=== PATIENT | female | born 1975 | race Caucasian/White ===

== ENCOUNTER 2017-12-14 01:45 | Emergency (ER) | payer OTHER ==
[~2017-12-14] VITALS: Ht 160 cm; Wt 104.3 kg
[2017-12-14 06:11] LABS: Basophils # (auto) 0.1 uL; Eosinophils # (auto) 0.1 uL; Mean Corpuscular Hgb Conc. 30.4 g/dL (32.0-36.0); Monocytes # (auto) 0.3 uL
[2017-12-14 06:13] LABS: Basophils % (auto) 0.8 % (0.0-2.0); Eosinophils % (auto) 0.5 % (0.0-7.0); Hematocrit 30.5 % (36.0-46.0); Hemoglobin 9.3 g/dL (12.2-16.2); Lymphocytes % (auto) 21.3 % (10.0-50.0); Mean Corpuscular Hemoglobin 21.8 pg (28.0-32.0); Mean Corpuscular Volume 71.8 fL (80.0-100.0); Monocytes % (auto) 2.8 % (0.0-12.0); Neutrophils % (auto) 74.6 % (37.0-80.0); Nucleated Red Blood Cells % 0.2 %; Platelet Count (auto) 324 10^3/uL (140-450); Red Blood Cells 4.24 10^6/uL (4.0-5.20); Red Cell Distribution Width 16.8 % (11.8-14.3); White Blood Cell 9.4 10^3/uL (4.4-10.8)
[2017-12-14 06:38] LABS: Alanine Aminotransferase 21 U/L (13-56); Albumin 3.5 g/dL (3.4-5.0); Alkaline Phosphatase 99 U/L (45-117); Anion Gap 8 (5-15); Aspartate Aminotransferase 18 U/L (15-37); BUN/Creatinine Ratio 9.5; Bilirubin, Total 0.4 mg/dL (0.2-1.0); Blood Urea Nitrogen 6 mg/dL (7-18); Calcium 8.9 mg/dL (8.5-10.1); Carbon Dioxide 23 mmol/L (21-32); Chloride 109 mmol/L (98-107); GFR African American 133 mL/min; GFR Non-African American 110 mL/min; Glucose 120 mg/dL (74-106); Potassium 3.5 mmol/L (3.5-5.1); Sodium 140 mmol/L (136-145); Total Protein 7.6 g/dL (6.4-8.2)
[2017-12-14 06:43] LABS: Urine Bacteria FEW /hpf (None Seen); Urine Blood Negative /uL (Negative); Urine Mucus FEW (None Seen); Urine Specific Gravity 1.017 (1.001-1.035); Urine WBC 11 /hpf (0 - 5)
[2017-12-14 06:47] LABS: Urine Pregnacy Test Negative (Negative)
[2017-12-14 06:59] LABS: Amphetamine Screen, Urine POSITIVE (NEGATIVE); Barbiturate Scree,Urine NEGATIVE (NEGATIVE); Benzodiazephine Screen, Urine NEGATIVE (NEGATIVE); Cannabinoid Screen, Urine POSITIVE (NEGATIVE); Cocaine Screen, Urine NEGATIVE (NEGATIVE); Opiate Scree,Urine NEGATIVE (NEGATIVE); Phencyclidine Screen, Urine NEGATIVE (NEGATIVE)
[2017-12-14] MEDS ORDERED: SODIUM CHLORIDE 0.9% 1,000 ML IV ONE (07:26)
[2017-12-14 08:41] VITALS: BP 131/85
== END 2017-12-14 08:42 | disposition home or self-care (01) ==
LOC: EDBD 01:45 → ER 01:50
DX: F19.129 Other psychoactive substance abuse with intoxication, unspecified (principal); F15.10 Other stimulant abuse, uncomplicated; F12.10 Cannabis abuse, uncomplicated; D50.0 Iron deficiency anemia secondary to blood loss (chronic); F10.129 Alcohol abuse with intoxication, unspecified; E11.9 Type 2 diabetes mellitus without complications; F17.210 Nicotine dependence, cigarettes, uncomplicated
CPT/HCPCS: 36415; 70450; 80053; 80307; 80320; 81001; 81025; 82962; 83735; 84484; 85025; 93005; 96360

== ENCOUNTER 2018-01-24 01:58 | Emergency (ER) | payer MEDICAID, OTHER | END 2018-01-24 02:00 | disposition left against medical advice (07) | LOC: ER 01:58 → EDBD 01:58 → ER 02:00 | DX: F10.10 Alcohol abuse, uncomplicated (principal); Z53.21 Procedure and treatment not carried out due to patient leaving prior to being seen by health care provider ==

== ENCOUNTER 2019-07-30 05:31 | Inpatient (IN) | payer OTHER, MEDICAID | END 2019-07-31 16:00 | disposition left against medical advice (07) | LOC: ER 05:31 → OVERFLOW 05:32 → EAST 11:08 | DX: N12 Tubulo-interstitial nephritis, not specified as acute or chronic (principal); E44.1 Mild protein-calorie malnutrition; N20.0 Calculus of kidney; D50.9 Iron deficiency anemia, unspecified; E11.9 Type 2 diabetes mellitus without complications; I10 Essential (primary) hypertension; E66.9 Obesity, unspecified; N30.90 Cystitis, unspecified without hematuria; E87.6 Hypokalemia; F17.210 Nicotine dependence, cigarettes, uncomplicated ==

== ENCOUNTER 2019-09-07 15:44 | Emergency (ER) | payer OTHER ==
[~2019-09-07] VITALS: Ht 167.6 cm; Wt 72.6 kg
[2019-09-07 16:05] VITALS: BP 118/71
== END 2019-09-07 19:04 | disposition left against medical advice (07) ==
LOC: EDBD 15:44 → ER 15:44
DX: M54.2 Cervicalgia (principal); R42 Dizziness and giddiness; Z53.21 Procedure and treatment not carried out due to patient leaving prior to being seen by health care provider

== ENCOUNTER 2021-04-17 08:04 | Inpatient (IN) | payer OTHER, MEDICAID ==
[~2021-04-17] VITALS: Ht 162.6 cm; Wt 102.8 kg
[2021-04-17] MEDS ORDERED: SODIUM CHLORIDE 0.9% 1,000 ML IVB ONE (08:30)
[2021-04-17] MEDS ORDERED: PROCHLORPERAZINE EDISYLATE 5 MG/ML 2ML VIAL IV ONE (08:30)
[2021-04-17] MEDS ORDERED: MORPHINE SULFATE 4 MG/ML SYR/VIAL IV ONE (08:30)
[2021-04-17] MEDS ORDERED: SODIUM CHLORIDE 0.9% 1,000 ML IV ONE (08:30)
[2021-04-17 08:36] LABS: Urine Bacteria MANY /hpf (None Seen); Urine Blood TRACE /uL (Negative); Urine Mucus FEW (None Seen); Urine Specific Gravity 1.015 (1.001-1.035); Urine WBC 311 /hpf (0 - 5); Urine WBC Clumps PRESENT /hpf (None Seen)
[2021-04-17 08:48] LABS: Alcohol, Urine < 3.0 mg/dL (0-10); Amphetamine Screen, Urine POSITIVE (NEGATIVE); Barbiturate Scree,Urine NEGATIVE (NEGATIVE); Benzodiazephine Screen, Urine NEGATIVE (NEGATIVE); Cocaine Screen, Urine NEGATIVE (NEGATIVE)
[2021-04-17 08:49] LABS: Hematocrit 23.7 % (36.0-46.0); Mean Corpuscular Hgb Conc. 29.1 g/dL (32.0-36.0); Mean Corpuscular Volume 58.6 fL (80.0-100.0); Platelet Count (auto) 452 10^3/uL (140-450); Red Blood Cells 4.05 10^6/uL (4.0-5.20); Red Cell Distribution Width 19.4 % (11.8-14.3); White Blood Cell 24.5 10^3/uL (4.4-10.8)
[2021-04-17 08:55] LABS: Hemoglobin 6.9 g/dL (12.2-16.2)
[2021-04-17 08:56] LABS: Cannabinoid Screen, Urine POSITIVE (NEGATIVE); Opiate Scree,Urine NEGATIVE (NEGATIVE); Phencyclidine Screen, Urine NEGATIVE (NEGATIVE)
[2021-04-17 08:57] LABS: Basophils % (manual) 0 (0.0-2.0); Blast Cells 0; Eosinophils % (manual) 0 (0-7); Metamyelocytes % 0; Myelocytes % 0; Promyelocytes % 0; Reactive Lymphocytes 0
[2021-04-17 08:59] LABS: Albumin 3.2 g/dL (3.4-5.0); Anion Gap 8 (5-15); Blood Urea Nitrogen 4 mg/dL (7-18); Calcium 8.8 mg/dL (8.5-10.1); Carbon Dioxide 21 mmol/L (21-32); Chloride 103 mmol/L (98-107); Glucose 124 mg/dL (74-106); Lipase 55 U/L (73-393); Potassium 3.3 mmol/L (3.5-5.1); Sodium 132 mmol/L (136-145)
[2021-04-17 09:05] LABS: Alanine Aminotransferase 30 U/L (13-56); Alkaline Phosphatase 129 U/L (45-117); Aspartate Aminotransferase 35 U/L (15-37); BUN/Creatinine Ratio 6.3; Bilirubin, Total 0.9 mg/dL (0.2-1.0); GFR African American 131 mL/min; GFR Non-African American 109 mL/min; Total Protein 7.4 g/dL (6.4-8.2)
[2021-04-17 11:48] LABS: Band Neutrophils % (manual) 9; Lymphocytes % (manual) 8 (10.0-50.0); Monocytes % (manual) 4 (0-12)
[2021-04-17] MEDS ORDERED: cefTRIAXone 1GM/50ML D5W 50 ML IV ONE (13:00)
[2021-04-17] MEDS ORDERED: KETOROLAC TROMETH 30 MG/ML 1ML VIAL IV ONE (13:00)
[2021-04-17] MEDS ORDERED: ACETAMINOPHEN 500 MG TAB PO ONE (13:13)
[2021-04-17] MEDS ORDERED: ACETAMINOPHEN 325 MG TAB PO ONE (13:15)
[2021-04-17] MEDS ORDERED: LORazepam 2MG/ML-1ML VIAL IV PRN (14:45)
[2021-04-17] MEDS ORDERED: NITROGLYCERIN 0.4 MG SL TAB SL PRN (14:45)
[2021-04-17] MEDS ORDERED: ONDANSETRON HCL 4 MG/2 ML VIAL IV PRN (14:45)
[2021-04-17] MEDS ORDERED: ACETAMINOPHEN 500 MG TAB PO PRN (14:45)
[2021-04-17] MEDS ORDERED: MORPHINE SULF INJ 2 MG/ML SYRINGE 1ML IV PRN (14:45)
[2021-04-17] MEDS ORDERED: POTASSIUM EFFERVESENT TAB 25 MEQ PO ONE (15:00)
[2021-04-17] MEDS: SODIUM CHLORIDE 0.9% 1,000 ML IV SCH ×2 (15:13→21:25)
[2021-04-17 22:00] VITALS: BP 94/53
[2021-04-18] VITALS (8 sets, daily range): BP systolic 94–123; BP diastolic 54–59
[2021-04-18] MEDS: MORPHINE SULF INJ 2 MG/ML SYRINGE 1ML IV PRN ×4 (00:15→23:42)
[2021-04-18] MEDS: HYDROcodone-ACET 5/325MG TAB PO PRN ×3 (03:30→20:23)
[2021-04-18] MEDS: SODIUM CHLORIDE 0.9% 1,000 ML IV SCH ×3 (04:05→12:02)
[2021-04-18 06:20] LABS: Hemoglobin 7.7 g/dL (12.2-16.2)
[2021-04-18 06:22] LABS: Hematocrit 25.9 % (36.0-46.0); Mean Corpuscular Hemoglobin 18.2 pg (28.0-32.0); Mean Corpuscular Hgb Conc. 29.8 g/dL (32.0-36.0); Mean Corpuscular Volume 61.3 fL (80.0-100.0); Platelet Count (auto) 395 10^3/uL (140-450); Red Blood Cells 4.23 10^6/uL (4.0-5.20); White Blood Cell 29.7 10^3/uL (4.4-10.8)
[2021-04-18 06:34] LABS: Red Cell Distribution Width 20.8 % (11.8-14.3)
[2021-04-18 06:36] LABS: Basophils % (manual) 0 (0.0-2.0); Blast Cells 0; Eosinophils % (manual) 0 (0-7); Metamyelocytes % 0; Myelocytes % 0; Promyelocytes % 0; Reactive Lymphocytes 0
[2021-04-18 06:37] LABS: Calcium 7.9 mg/dL (8.5-10.1); Potassium 3.7 mmol/L (3.5-5.1)
[2021-04-18 06:40] LABS: BUN/Creatinine Ratio 15.6
[2021-04-18 07:45] LABS: Band Neutrophils % (manual) 20; Lymphocytes % (manual) 6 (10.0-50.0); Monocytes % (manual) 3 (0-12)
[2021-04-18] MEDS ORDERED: cefTRIAXone 1GM/50ML D5W 50 ML IV SCH (09:00)
[2021-04-18] MEDS ORDERED: PANTOPRAZOLE 40 MG TAB PO SCH (10:00)
[2021-04-18] MEDS ORDERED: FOLIC ACID 1 MG, MULTIPLE VITAMIN 10 ML, MAGNESIUM SULF SDV 50% 8 MEQ, THIAMINE INJ 100... INJ SCH ×5 (12:00)
[2021-04-18] MEDS ORDERED: GOLYTELY 4L KIT PO ONE (16:30)
[2021-04-19] MEDS: SODIUM CHLORIDE 0.9% 1,000 ML IV SCH (01:05)
[2021-04-19 04:42] VITALS: BP 130/69
[2021-04-19] MEDS: MORPHINE SULF INJ 2 MG/ML SYRINGE 1ML IV PRN (06:07)
[2021-04-19 06:34] LABS: Hemoglobin 7.4 g/dL (12.2-16.2); White Blood Cell 23.9 10^3/uL (4.4-10.8)
[2021-04-19 06:36] LABS: Basophils # (auto) 0.1 10 ^3/uL (0-0.2); Basophils % (auto) 0.4 % (0.0-2.0); Eosinophils # (auto) 0 10 ^3/uL (0-0.8); Eosinophils % (auto) 0.2 % (0.0-7.0); Hematocrit 25.3 % (36.0-46.0); Lymphocytes # (auto) 1.5 10 ^3/uL (0.4-5.4); Lymphocytes % (auto) 6.4 % (10.0-50.0); Mean Corpuscular Hemoglobin 18.1 pg (28.0-32.0); Mean Corpuscular Hgb Conc. 29.1 g/dL (32.0-36.0); Mean Corpuscular Volume 62.3 fL (80.0-100.0); Monocytes # (auto) 0.9 10 ^3/uL (0-1.3); Monocytes % (auto) 3.7 % (0.0-12.0); Neutrophils # (auto) 21.4 10 ^3/uL (1.6-8.6); Neutrophils % (auto) 89.3 % (37.0-80.0); Platelet Count (auto) 340 10^3/uL (140-450); Red Blood Cells 4.06 10^6/uL (4.0-5.20)
[2021-04-19 06:42] LABS: Red Cell Distribution Width 20.8 % (11.8-14.3)
[2021-04-19 06:48] LABS: INR 1.04 (0.9-1.15); Partial Thromboplastin Time 26.8 sec (23.0-31.2)
[2021-04-19 06:53] LABS: BUN/Creatinine Ratio 15.9; Calcium 8.6 mg/dL (8.5-10.1); Magnesium 2.1 mg/dL (1.6-2.6); Potassium 3.2 mmol/L (3.5-5.1)
[2021-04-19 08:30] VITALS: BP 119/67
== END 2021-04-19 08:45 | disposition left against medical advice (07) | DRG 872 ==
LOC: ER 08:04 → TELE 14:38 → TELE-CENTR 18:09
PROVIDERS: ADMIT Nurse Practitioner Acute Care; ATTEND Internal Medicine
PROC: 30233N1 Transfusion of Nonautologous Red Blood Cells into Peripheral Vein, Percutaneous Approach (ICD-10-PCS; principal; 2021-04-18)
DX: A41.9 Sepsis, unspecified organism (principal); R65.20 Severe sepsis without septic shock; N30.90 Cystitis, unspecified without hematuria; N83.9 Noninflammatory disorder of ovary, fallopian tube and broad ligament, unspecified; E87.6 Hypokalemia; E66.9 Obesity, unspecified; F15.10 Other stimulant abuse, uncomplicated; D50.9 Iron deficiency anemia, unspecified; Z53.29 Procedure and treatment not carried out because of patient's decision for other reasons; Z68.34 Body mass index [BMI] 34.0-34.9, adult; E11.9 Type 2 diabetes mellitus without complications; F17.210 Nicotine dependence, cigarettes, uncomplicated; I10 Essential (primary) hypertension; Z87.440 Personal history of urinary (tract) infections
CPT/HCPCS: 36415; 74176; 76830; 76856; 80048; 80053; 80307; 81001; 82270; 83540; 83550; 83605; 83690; 83735; 84484; 84702; 85007; 85025; 85027; 85610; 85730; 86850; 86900; 86901; 86920; 87040; 87086; 87426; 93005; 96361; 96374; 96375; G0378; J0696; J1885

== ENCOUNTER 2024-08-17 21:12 | Emergency (ER) | payer OTHER, MEDICAID ==
[~2024-08-17] VITALS: Ht 160 cm; Wt 94.0 kg
[2024-08-17 21:34] VITALS: BP 143/81; PULSE 129; RESP 18; O2SAT 95
[2024-08-17 22:05] LABS: Eosinophils # (auto) 0.1 10 ^3/uL (0-0.8); Eosinophils % (auto) 0.4 % (0.0-7.0)
[2024-08-17 22:08] LABS: Basophils # (auto) 0.3 10 ^3/uL (0-0.2); Basophils % (auto) 1.2 % (0.0-2.0); Hematocrit 29.9 % (36.0-46.0); Hemoglobin 9.1 g/dL (12.2-16.2); Lymphocytes # (auto) 2.8 10 ^3/uL (0.4-5.4); Lymphocytes % (auto) 12.6 % (10.0-50.0); Mean Corpuscular Hemoglobin 20.8 pg (28.0-32.0); Mean Corpuscular Hgb Conc. 30.6 g/dL (32.0-36.0); Mean Corpuscular Volume 68.1 fL (80.0-100.0); Monocytes # (auto) 1.5 10 ^3/uL (0-1.3); Monocytes % (auto) 6.8 % (0.0-12.0); Neutrophils # (auto) 17.8 10 ^3/uL (1.6-8.6); Platelet Count (auto) 448 10^3/uL (140-450); Red Blood Cells 4.39 10^6/uL (4.0-5.20); Red Cell Distribution Width 17.9 % (11.8-14.3); White Blood Cell 22.5 10^3/uL (4.4-10.8)
[2024-08-17 22:22] LABS: Amphetamine Screen, Urine Pos (NEGATIVE); Barbiturate Scree,Urine Neg (NEGATIVE); Benzodiazephine Screen, Urine Neg (NEGATIVE); Cannabinoid Screen, Urine Pos (NEGATIVE); Cocaine Screen, Urine Neg (NEGATIVE); Opiate Scree,Urine Neg (NEGATIVE); Phencyclidine Screen, Urine Neg (NEGATIVE)
[2024-08-17 22:25] LABS: Alanine Aminotransferase 33 U/L (7-40); Albumin 4.7 g/dL (3.2-4.8); Alkaline Phosphatase 246 U/L (46-116); Anion Gap 9 (5-15); Aspartate Aminotransferase 18 U/L (13-40); BUN/Creatinine Ratio 17.3 (10.0-20.0); Bilirubin, Total 0.6 mg/dL (0.2-1.0); Blood Urea Nitrogen 17 mg/dL (9-23); Calcium 10.5 mg/dL (8.7-10.4); Carbon Dioxide 23 mmol/L (20-31); Chloride 102 mmol/L (98-107); Glucose 131 mg/dL (74-106); Lipase 30 U/L (12-53); Potassium 3.3 mmol/L (3.5-5.1); Sodium 134 mmol/L (136-145); Total Protein 8.6 g/dL (5.7-8.2)
[2024-08-17 22:29] LABS: Urine Bacteria FEW /hpf (None Seen); Urine Blood 3+ /uL (Negative); Urine Clarity Turbid (Clear); Urine Color Yellow (Yellow); Urine Mucus MODERATE (None Seen); Urine Protein, UAD 2+ (Negative); Urine Specific Gravity 1.038 (1.001-1.035); Urine Urobilinogen 3 mg/dL (Negative); Urine WBC 12 /hpf (0 - 5)
== END 2024-08-17 22:30 | disposition left against medical advice (07) ==
LOC: ER 21:15
DX: R10.9 Unspecified abdominal pain (principal); R11.2 Nausea with vomiting, unspecified; N93.9 Abnormal uterine and vaginal bleeding, unspecified; Z53.21 Procedure and treatment not carried out due to patient leaving prior to being seen by health care provider; Z79.899 Other long term (current) drug therapy
CPT/HCPCS: 36415; 80053; 80307; 81001; 83690; 85025

== ENCOUNTER 2024-11-02 11:02 | Emergency (ER) | payer MEDICAID, OTHER ==
[~2024-11-02] VITALS: Ht 160 cm; Wt 99.8 kg
--- NOTE | 2024-11-02 11:38 | ED.PDOC ---
GI ASSESSMENT HPI Comments 48 year old female presents to the ED with chief complaint of RLQ abdominal pain. Patient reports that she has been experiencing 8/10 RLQ abdominal pain with associated radiation to the right lower back and hip along with symptoms of chills and nausea. Patient relays that she was diagnosed with a Rt ovarian tumor/uterine mass 2 months ago on 08/18/24 at [facility], but has not had a PCP or OBGYN follow up since then, having a PCP appointment soon. Patient denies any vomiting, diarrhea, fever, dysuria, or headache. Chief Complaint: Abdominal Pain Time Seen by MD: 11:34 Primary Care Provider: VLADISLAV Sheldon Notes: Nurses Notes, Medications, Allergies Allergies: Coded Allergies: Iron (Verified Allergy, Unknown, 04/17/21) Home Meds Active Scripts Hydrocodone-Acetaminophen (Hydrocodone Bitartrate/AC 5-325 mg) 1 Tab Tab, 1 TAB PO Q8HP PRN for 7 Days, #21 TAB Prov:SHAGGY PERDOMO MD 11/02/24 Ondansetron Odt 4MG Tab (ZOFRAN PO) 4 Mg Tb, 4 MG PO Q8HP PRN for 5 Days, #15 TAB ODT TAB-DISSOLVE IN MOUTH, THEN SWALLOW Prov:SHAGGY PERDOMO MD 11/02/24 Information Source: Patient Mode of Arrival: Ambulatory Timing: Weeks Duration: Since onset Prehospital treatment: None Quality: Sharp Vomitus: None Stool: Normal Severity: Moderate Recent: None Recent Hx of: None Pain Location: RLQ Modifying Factors: Nothing Associated sign and symptoms: Nausea, Abdominal Pain Past Medical History PAST MEDICAL HISTORY: Anemia, DM, HTN Past Medical History (Other): Ovarian tumor/Uterine mass Surgical History: Appendectomy, CLOTH WEAVER History: No Pertinent CLOTH WEAVER History Family History Family History: Reviewed,noncontributory to illness, Family hx of Cancer Social History Smoker: Quit Less Than 1 Year, Cigarettes, Less Than 1 Pack/Day Alcohol: Occasionally Drugs: Marijuana Lives In: Home Constitutional: reports: chills; denies: diaphoresis, fatigue, fever, malaise, sweats, weakness, others EENTM: denies: blurred vision, double vision, ear bleeding, ear discharge, ear drainage, ear pain, ear ringing, eye pain, eye redness, hearing loss, mouth pain, mouth swelling, nasal discharge, nose bleeding, nose congestion, nose pain , photophobia, tearing, throat pain, throat swelling, voice changes, others Respiratory: denies: cough, hemoptysis, orthopnea, SOB at rest, shortness of breath, SOB with excertion, stridor, wheezing, others Cardiovascular: denies: chest pain, dizzy spells, diaphoresis, Dyspnea on exertion, edema, irregular heart beat, left arm pain, lightheadedness, palpitations, PND, syncope, others Gastrointestinal: reports: abdomen distended, abdominal pain, nausea; denies: blood streaked bowels, constipated, diarrhea, dysphagia, difficulty swallowing, hematemesis, melena, poor appetite, poor fluid intake, rectal bleeding, rectal pain, vomiting, others Genitourinary: denies: abnormal vagina bleeding, burning, dyspareunia, dysuria, flank pain, frequency, hematuria, incontinence, pain, , vagina discharge, urgency, others Neurological: denies: dizziness, fainting, headache, left sided numbness, left sided weakness, numbness, paresthesia, pre-existing deficit, right sided nu mbness, right sided weakness, seizure, speech problems, tingling, tremors, weakness, others Musculoskeletal: reports: back pain; denies: gout, joint pain, joint swelling, muscle pain, muscle stiffness, neck pain, others Integumetry: denies: bruises, change in color, change in hair/nails, dryness, laceration, lesions, lumps, rash, wounds, others Allergic/Immunocompromised: denies: Difficulty Healing, Frequent Infections, H connie, Itching, others Hematologic/Lymphatic: denies: anemia, blood clots, easy bleeding, easy bruising, swollen glands, others Endocrine: denies: excessive hunger, excessive sweating, excessive thirst, excessive urination, flushing, intolerance to cold, intolerance to heat, unexplained weight gain, unexplained weight loss, others Psychiatric: denies: anxiety, bipolar disorder, depression, hopeless, panic disorder, schizophrenia, sleepless, suicidal, others All Other Systems: Reviewed and Negative Physical Exam General Appearance: Mild Distress HEENT: Normal ENT Inspection, Pharynx Normal, TMs Normal Neck: Full Range of Motion, Non-Tender, Normal, Normal Inspection Respiratory: Chest Non-Tender, Lungs Clear, No Accessory Muscle Use, No Respiratory Distress, Normal Breath Sounds Cardiovascular: No Edema, No JVD, No Murmur, No Gallop, Normal Peripheral Pulses, Regular Rate/Rhythm Breast Exam: Deferred Gastrointestinal: LLQ, No Organomegaly, No Pulsatile Mass, Normal Bowel Sounds, RUQ, Soft, Tenderness Genitalia: Deferred Pelvic: Deferred Rectal: Deferred Extremities: No calf tenderness, Normal capillary refill, Normal inspection, Normal range of motion, Non-tender, No pedal edema Musculoskeletal : Apperance: Normal Neurologic: Alert, tax collector II-XII nml as Tested, No Motor Deficits, Normal Affect, Normal Mood, No Sensory Deficits Cerebellar Function: Normal Reflexes: Normal Skin: Dry, Normal Color, Warm Lymphatic: No Adenopathy Was a procedure done? Was a procedure done?: No GI differential Dx Differential Diagnosis: Inflammatory BD, Pancreatitis, UTI, Electrolyte Imbalance, Food Poisoning X-Ray, Labs, Meds, VS Vital Signs Date Time Temp Pulse Resp B/P (MAP) Pulse Ox O2 Delivery O2 Flow Rate FiO2 11/02/24 13:25 121 18 117/75 11/02/24 13:03 98.1 121 18 117/75 (89) 100 98.1 11/02/24 12:45 121 18 100 Room Air* 0 21 11/02/24 11:10 98.1 120 17 144/84 (104) 98 Lab Test 11/02/24 11:35 11/02/24 11:12 Range/Units White Blood Count 10.2 4.4-10.8 10^3/uL Red Blood Count 5.27 H 4.0-5.20 10^6/uL Hemoglobin 12.0 L 12.2-16.2 g/dL Hematocrit 38.6 36.0-46.0 % Mean Corpuscular Volume 73.2 L 80.0-100.0 fL Mean Corpuscular Hemoglobin 22.7 L 28.0-32.0 pg Mean Corpuscular Hemoglobin Concent 31.0 L 32.0-36.0 g/dL Red Cell Distribution Width 20.0 H 11.8-14.3 % Platelet Count 410 140-450 10^3/uL Mean Platelet Volume 9.0 6.9-10.8 fL Neutrophils (%) (Auto) 59.7 37.0-80.0 % Lymphocytes (%) (Auto) 32.0 10.0-50.0 % Monocytes (%) (Auto) 5.5 0.0-12.0 % Eosinophils (%) (Auto) 1.9 0.0-7.0 % Basophils (%) (Auto) 0.9 0.0-2.0 % Neutrophils # (Auto) 6.1 1.6-8.6 10 ^3/uL Lymphocytes # (Auto) 3.2 0.4-5.4 10 ^3/uL Monocytes # (Auto) 0.6 0-1.3 10 ^3/uL Eosinophils # (Auto) 0.2 0-0.8 10 ^3/uL Basophils # (Auto) 0.1 0-0.2 10 ^3/uL Nucleated Red Blood Cells 0.1 % Sodium Level 140 136-145 mmol/L Potassium Level 3.9 3.5-5.1 mmol/L Chloride Level 105 98-107 mmol/L Carbon Dioxide Level 26 20-31 mmol/L Anion Gap 9 5-15 Blood Urea Nitrogen 17 9-23 mg/dL Creatinine 0.90 0.550-1.02 mg/dL Glomerular Filtration Rate Calc 79 >90 mL/min BUN/Creatinine Ratio 18.9 10.0-20.0 Serum Glucose 113 H 74-106 mg/dL Calcium Level 11.3 H 8.7-10.4 mg/dL Total Bilirubin 0.6 0.2-1.0 mg/dL Aspartate Amino Transferase (AST) 75 H 13-40 U/L Alanine Aminotransferase (ALT) 72 H 7-40 U/L Alkaline Phosphatase 178 H 46-116 U/L Total Protein 8.5 H 5.7-8.2 g/dL Albumin 4.9 H 3.2-4.8 g/dL Lipase 40 12-53 U/L Urine Color Yellow Yellow Urine Clarity Turbid H Clear Urine pH 5.5 5.0-9.0 Urine Specific [place] 1.032 1.001-1.035 Urine Protein 1+ H Negative Urine Ketones Trace Negative Urine Blood Negative Negative /uL Urine Nitrite Negative Negative Urine Bilirubin Negative Negative Urine Urobilinogen 2 H Negative mg/dL Urine Leukocyte Esterase Negative Negative /uL Urine RBC 4 0 - 4 /hpf Urine WBC 5 0 - 5 /hpf Urine Squamous Epithelial Cells Mod <5 /hpf Urine Bacteria Few H None Seen /hpf Urine Hyaline Casts Few 0 - 2 /lpf Urine Mucus Few None Seen Urine Glucose Normal Normal mg/dL Current Medications Medications (Trade) Dose Ordered Sig/Ashley Route Start Time Stop Time Status Last Admin Ondansetron HCl (Zofran) 4 mg ONCE ONCE IV 11/02/24 11:30 11/02/24 11:31 DC 11/02/24 13:22 Morphine Sulfate 4 mg ONCE ONCE IV 11/02/24 11:30 11/02/24 11:31 DC 11/02/24 13:25 CT Abd/Pel indicates: 1. There is no acute process in the abdomen and pelvis. 2. Distal colon diverticulosis without evidence of acute diverticulitis. 3. Contracted gallbladder without evidence of gallstones. The patient's urine test is positive for UTI The patient's liver enzymes are all elevated The total bilirubin is within normal limits The CBC is within normal limits The patient was given morphine 4 mg IV push for the pain The patient was given Zofran 4 mg IV push for the nausea We explained to the patient that most likely she needs to follow up with the primary care doctor The patient was given a prescription of [place] for the pain The patient will return to the emergency department's condition worsens. Images Reviewed?: Images reviewed and evaluated by me Time of 1ST Reevaluation: 14:56 Reevaluation 1ST: Improved Patient Education/Counseling: Diagnosis, Treatment, Prognosis, Need For Follow Up Family Education/Counseling: No Family Present Departure 1 Departure Time of Disposition: 14:56 Impression: Primary Impression: Acute abdominal pain Additional Impression: Elevated liver enzymes Disposition: 01 HOME / SELF CARE / HOMELESS Condition: Fair e-Prescriptions Hydrocodone-Acetaminophen (Hydrocodone Bitartrate/AC 5-325 mg) 1 Tab Tab 1 TAB PO Q8HP PRN for 7 Days, #21 TAB Prov: SHAGGY PERDOMO MD 11/02/24 Ondansetron Odt 4MG Tab (ZOFRAN PO) 4 Mg Tb 4 MG PO Q8HP PRN for 5 Days, #15 TAB ODT TAB-DISSOLVE IN MOUTH, THEN SWALLOW Prov: SHAGGY PERDOMO MD 11/02/24 Discharged With: Self Critical Care Note Critical Care Time?: No Stability Stability form required: No Heart Score Heart Score: Heart Score Response (Comments) Value History N/A 0 EKG N/A 0 Age N/A 0 Risk Factors N/A 0 Troponin N/A 0 Total 0 I personally scribed for SHAGGY PERDOMO MD ([email or web address]) on 11/02/24 at 11:38. Electronically submitted by Richard Butterfield ([email or web address]). I personally scribed for SHAGGY PERDOMO MD ([email or web address]) on 11/02/24 at 14:54. Electronically submitted by Richard Butterfield ([email or web address]). SHAGGY PERDOMO MD Nov 02, 2024 11:38
[2024-11-02 12:03] LABS: Basophils # (auto) 0.1 10 ^3/uL (0-0.2); Basophils % (auto) 0.9 % (0.0-2.0); Eosinophils # (auto) 0.2 10 ^3/uL (0-0.8); Eosinophils % (auto) 1.9 % (0.0-7.0); Hematocrit 38.6 % (36.0-46.0); Lymphocytes # (auto) 3.2 10 ^3/uL (0.4-5.4); Mean Corpuscular Hemoglobin 22.7 pg (28.0-32.0); Mean Corpuscular Volume 73.2 fL (80.0-100.0); Monocytes # (auto) 0.6 10 ^3/uL (0-1.3); Monocytes % (auto) 5.5 % (0.0-12.0); Neutrophils # (auto) 6.1 10 ^3/uL (1.6-8.6); Neutrophils % (auto) 59.7 % (37.0-80.0); Nucleated Red Blood Cells % 0.1 %; Platelet Count (auto) 410 10^3/uL (140-450); Red Blood Cells 5.27 10^6/uL (4.0-5.20); White Blood Cell 10.2 10^3/uL (4.4-10.8)
[2024-11-02 12:21] LABS: Urine Bacteria FEW /hpf (None Seen); Urine Blood Negative /uL (Negative); Urine Clarity Turbid (Clear); Urine Color Yellow (Yellow); Urine Hyaline Cast FEW /lpf (0 - 2); Urine Mucus FEW (None Seen); Urine Protein, UAD 1+ (Negative); Urine Specific Gravity 1.032 (1.001-1.035); Urine Urobilinogen 2 mg/dL (Negative); Urine WBC 5 /hpf (0 - 5); Urine pH 5.5 (5.0-9.0)
[2024-11-02 12:24] LABS: Anion Gap 9 (5-15); BUN/Creatinine Ratio 18.9 (10.0-20.0); Bilirubin, Total 0.6 mg/dL (0.2-1.0); Blood Urea Nitrogen 17 mg/dL (9-23); Carbon Dioxide 26 mmol/L (20-31); Chloride 105 mmol/L (98-107); Potassium 3.9 mmol/L (3.5-5.1); Sodium 140 mmol/L (136-145)
[2024-11-02 12:45] VITALS: PULSE 121; RESP 18; O2SAT 100
[2024-11-02 12:45] LABS: Alanine Aminotransferase 72 U/L (7-40); Albumin 4.9 g/dL (3.2-4.8); Alkaline Phosphatase 178 U/L (46-116); Aspartate Aminotransferase 75 U/L (13-40); Calcium 11.3 mg/dL (8.7-10.4); Glucose 113 mg/dL (74-106); Total Protein 8.5 g/dL (5.7-8.2)
[2024-11-02 13:03] VITALS: TEMP 98.1; O2SAT 100
[2024-11-02] MEDS: ONDANSETRON HCL 4 MG/2 ML VIAL IV ONE (13:22)
[2024-11-02] MEDS: MORPHINE SULFATE 4 MG/ML SYR/VIAL IV ONE (13:25)
[2024-11-02 13:28] LABS: Lipase 40 U/L (12-53)
[2024-11-02 13:52] VITALS: BP 117/75; PULSE 101; RESP 18
--- NOTE | 2024-11-02 14:49 | DVH ---
CT ABDOMEN AND PELVIS WITHOUT CONTRAST CLINICAL HISTORY: pain TECHNIQUE: Multiple contiguous axial images of the abdomen and pelvis without intravenous contrast. The images were reformatted degenerate coronal and sagittal reconstructions. All CT scans at this medical facility are performed using dose modulation techniques as appropriate t o a performed exam including the following:Automated exposure control was utilized; adjustment of the MA and/or KV according to patient size; and use of iterative reconstruction technique. Radiation Dose Information: CT Dose: CTDI volume is 25 mGy. Dose-length product is 1331 mGy*cm Comparison: None FINDINGS: Evaluation of the abdomen and pelvis is limited without intravenous contrast. Gallbladder is contracted without evidence of gallstones. The liver, pancreas, kidneys, adrenal gl ands, and spleen appear within normal limits. There is no gross evidence of abdominal lymphadenopathy. There is no free fluid or free air. The stomach grossly appears unremarkable. The small and large bowel loops demonstrate normal caliber . There are scattered diverticula in the distal colon without evidence of acute diverticulitis. Ther e are likely postsurgical changes in the right lower quadrant abdomen with calcified suture material. The abdominal aorta and IVC appear within normal limits. The bladder appears unremarkable for the degree of distention. Pelvic organ appears within normal coker its. There is no gross evidence of a pelvic mass. There is no free fluid collection. Lung bases are clear. There is no acute osseous abnormality. IMPRESSION: 1. There is no acute process in the abdomen and pelvis. 2. Distal colon diverticulosis without evidence of acute diverticulitis. 3. Contracted gallbladder without evidence of gallstones. HS:Y
[2024-11-02] MEDS ORDERED: ZOFR4T PO (14:57)
[2024-11-02] MEDS ORDERED: HYDR-4902 PO (14:57)
== END 2024-11-02 15:50 | disposition home or self-care (01) ==
LOC: ER 11:02
DX: R74.8 Abnormal levels of other serum enzymes (principal); R10.31 Right lower quadrant pain; I10 Essential (primary) hypertension; E11.9 Type 2 diabetes mellitus without complications; Z90.49 Acquired absence of other specified parts of digestive tract; Z87.891 Personal history of nicotine dependence
CPT/HCPCS: 36415; 74176; 80053; 81001; 83690; 85025; 96374; 96375; 99285; J2270; J2405